=== PATIENT | female | born 2000 | race Two or more races ===

== ENCOUNTER 2022-06-25 16:07 | Outpatient (CLI) | payer OTHER | END 2022-06-25 16:49 | disposition home or self-care (01) | LOC: PRENATAL 16:07 | PROVIDERS: ATTEND Obstetrics & Gynecology Maternal & Fetal Medicine | DX: O35.0XX0 Maternal care for (suspected) central nervous system malformation in fetus, not applicable or unspecified (principal); O35.3XX0 Maternal care for (suspected) damage to fetus from viral disease in mother, not applicable or unspecified; O99.891 Other specified diseases and conditions complicating pregnancy; Z3A.20 20 weeks gestation of pregnancy ==

== ENCOUNTER 2025-06-07 08:50 | Emergency (ER) | payer OTHER ==
[~2025-06-07] VITALS: Ht 162.6 cm; Wt 83.5 kg
[~2025-06-07 08:50] MED LIST: PRENATABS RX T1 EACH PO
[2025-06-07 09:04] VITALS: BP 116/77; O2SAT 100
[2025-06-07] MEDS ORDERED: FOLIC ACID0.4 MG PO (09:05)
[2025-06-07 09:52] LABS: BASO % 1.2 % (0.1-1.2); EOS # 0.19 (0.04-0.54); EOS % 3.3 % (0.7-7.0); LYMPH # 1.93 (1.18-3.74); LYMPH % 33.1 % (19.3-53.1); MEAN PLATELET VOLUME 8.80 fl (9.4-12.4); MONO # 0.64 (0.24-0.82); MONO % 11.0 % (4.7-12.5); NEUT # 2.98 (1.56-6.13); NEUT % 51.1 % (34.0-71.1); RED CELL DISTRIBUTION WIDTH 16.0 % (11.6-14.4)
[2025-06-07 10:27] LABS: BAND MAN 6.0 %; EOSINOPHIL MAN 6.0 %; LYMPHOCYTE MAN 27.0 %; MONOCYTE MAN 10.0 %; NEUTROPHILS MAN 47.0 %
== END 2025-06-07 11:40 | disposition home or self-care (01) ==
LOC: ER 08:50
PROVIDERS: General Practice
DX: O20.8 Other hemorrhage in early pregnancy (principal)

== ENCOUNTER 2025-06-21 13:30 | Outpatient (CLI) | payer OTHER ==
[~2025-06-21 13:30] MED LIST changes: +FOLIC ACID0.4 MG PO
== END 2025-06-22 13:31 | disposition home or self-care (01) ==
LOC: PRENATAL 13:30
PROVIDERS: ATTEND Obstetrics & Gynecology Maternal & Fetal Medicine
DX: O36.80X0 Pregnancy with inconclusive fetal viability, not applicable or unspecified (principal); Z36.82 Encounter for antenatal screening for nuchal translucency; Z14.8 Genetic carrier of other disease; O99.019 Anemia complicating pregnancy, unspecified trimester; Z3A.12 12 weeks gestation of pregnancy

== ENCOUNTER 2025-08-26 03:04 | Emergency (ER) | payer OTHER ==
[~2025-08-26] VITALS: Ht 162.6 cm; Wt 83.9 kg
[2025-08-26] MEDS ORDERED: FAMOTIDINE/PF 20 MG/2 ML VIAL IV STA (03:55)
[2025-08-26] MEDS ORDERED: ONDANSETRON HCL 2 MG/ML VIAL IV STA (03:56)
[2025-08-26] MEDS ORDERED: 0.9 % SODIUM CHLORIDE 500 ML IV STA (03:56)
[2025-08-26] MEDS ORDERED: ONDANSETRON HCL 2 MG/ML VIAL ONE (03:57)
[2025-08-26] MEDS ORDERED: FAMOTIDINE/PF 20 MG/2 ML VIAL ONE (03:57)
[2025-08-26 04:31] LABS: BASO % 0.4 % (0.1-1.2); EOS # 0.53 (0.04-0.54); EOS % 4.1 % (0.7-7.0); LYMPH # 2.22 (1.18-3.74); LYMPH % 17.0 % (19.3-53.1); MEAN PLATELET VOLUME 8.80 fl (9.4-12.4); MONO # 0.91 (0.24-0.82); MONO % 7.0 % (4.7-12.5); NEUT # 9.19 (1.56-6.13); NEUT % 70.3 % (34.0-71.1); RED CELL DISTRIBUTION WIDTH 14.8 % (11.6-14.4)
[2025-08-26 04:48] LABS: ALT/SGPT 38.0 U/L (12-78); AST/SGOT 117.0 U/L (15-37); BILIRUBIN TOTAL 0.62 mg/dL (0.3-1.2); BUN CREA RATIO 16.0 (7.0-25.0); CREATININE SERUM 0.44 mg/dL (0.55-1.02); GFR 177.2; GLOBULINA 4.7 G/DL (2.4-3.5); GLUCOSE FASTING 116.0 mg/dL (65-100); OSMOLALITY SERUM 276.0 MOSM/KG (275-295)
[2025-08-26 05:05] LABS: URINE APPEARANCE Clear; URINE BILIRRUBIN Negative (NEGATIVE); URINE BLOOD Negative; URINE COLOR Yellow; URINE GLUCOSE Negative (NEGATIVE); URINE KETONE Trace (NEGATIVE); URINE LEUKOCYTE Small; URINE NITRATE Negative; URINE PROTEIN Trace (NEGATIVE); URINE UROBILINOGEN 1.0 E.U./dl
[2025-08-26 05:08] LABS: URINE BACTERIA 1358.4 uL (0.0-1933); URINE EPITHELIAL CELLS 27.3 uL (0.0-38.8); URINE RBC 4.8 uL (0.0-20.8); URINE WBC 39.8 uL (0.0-23.2)
[2025-08-26 05:31] LABS: URINE CAST 0.14 uL (0.0-1.40)
[2025-08-26] MEDS ORDERED: CEFTRIAXONE SODIUM 1,000 MG VIAL IV STA (07:01)
[2025-08-26] MEDS ORDERED: PEPCID AC20 MG PO (08:20)
[2025-08-26] MEDS ORDERED: DICLEGIS DR 101 EACH PO (08:20)
[2025-08-26] MEDS ORDERED: ZOFRAN8 MG PO (08:20)
== END 2025-08-26 09:12 | disposition home or self-care (01) ==
LOC: ER 03:04
PROVIDERS: General Practice
DX: O21.0 Mild hyperemesis gravidarum (principal); Z3A.21 21 weeks gestation of pregnancy; R10.9 Unspecified abdominal pain